=== PATIENT | female | born 1970 | race Two or more races ===

== ENCOUNTER 2019-04-15 11:13 | Emergency (ER) | payer MEDICAID ==
[~2019-04-15] VITALS: Ht 167.6 cm; Wt 86.2 kg
[2019-04-15 11:15] VITALS: BP 134/72
== END 2019-04-15 13:50 | disposition home or self-care (01) ==
LOC: ER 11:13
DX: R05 Cough (principal); J45.909 Unspecified asthma, uncomplicated
CPT/HCPCS: 71046

== ENCOUNTER 2019-07-11 11:53 | Emergency (ER) | payer MEDICAID, OTHER ==
[~2019-07-11] VITALS: Ht 167.6 cm; Wt 89.8 kg
[2019-07-11 12:06] VITALS: BP 131/81
--- NOTE | 2019-07-11 12:23 | NUR ---
Patient discharged to home in stable condition. Written and verbal after care instructions given. Patient verbalizes understanding of instruction. Pt ambulatory with a steady gait
== END 2019-07-11 12:27 | disposition home or self-care (01) ==
LOC: ER 11:53
DX: Z03.818 Encounter for observation for suspected exposure to other biological agents ruled out (principal)
CPT/HCPCS: 99283; U0003

== ENCOUNTER 2019-08-03 17:42 | Emergency (ER) | payer OTHER ==
[~2019-08-03] VITALS: Ht 167.6 cm; Wt 77.1 kg
[2019-08-03 17:56] VITALS: BP 135/81
== END 2019-08-03 18:35 | disposition home or self-care (01) ==
LOC: ER 17:45
DX: Z03.818 Encounter for observation for suspected exposure to other biological agents ruled out (principal); J45.909 Unspecified asthma, uncomplicated; K21.9 Gastro-esophageal reflux disease without esophagitis
CPT/HCPCS: 99283; C9803; U0003

== ENCOUNTER 2019-08-16 15:43 | Emergency (ER) | payer OTHER ==
[~2019-08-16] VITALS: Ht 167.6 cm; Wt 72.6 kg
[2019-08-16 15:51] VITALS: BP 135/62
== END 2019-08-16 16:22 | disposition home or self-care (01) ==
LOC: ER 15:45
DX: Z11.59 Encounter for screening for other viral diseases (principal); J45.909 Unspecified asthma, uncomplicated; K21.9 Gastro-esophageal reflux disease without esophagitis
CPT/HCPCS: 99283; C9803; U0003

== ENCOUNTER 2019-08-29 08:23 | Emergency (ER) | payer OTHER ==
[~2019-08-29] VITALS: Ht 167.6 cm; Wt 90.7 kg
[2019-08-29 08:27] VITALS: BP 135/88
--- NOTE | 2019-08-29 10:01 | NUR ---
Patient discharged to home in stable condition. Written and verbal after care instructions given. Patient verbalizes understanding of instruction.
== END 2019-08-29 10:00 | disposition home or self-care (01) ==
LOC: ER 08:24
DX: Z11.59 Encounter for screening for other viral diseases (principal); J45.909 Unspecified asthma, uncomplicated; K21.9 Gastro-esophageal reflux disease without esophagitis
CPT/HCPCS: 99283; C9803; U0003

== ENCOUNTER 2019-09-19 12:41 | Emergency (ER) | payer OTHER ==
[~2019-09-19] VITALS: Ht 167.6 cm; Wt 88.5 kg
[2019-09-19 12:52] VITALS: BP 135/66
--- NOTE | 2019-09-19 13:30 | NUR ---
SWAB DONE AND SENT TO LAB
--- NOTE | 2019-09-19 13:36 | NUR ---
Patient discharged to home in stable condition. Written and verbal after care instructions given. Patient verbalizes understanding of instruction.Pt ambulatory with a steady gait
== END 2019-09-19 13:37 | disposition home or self-care (01) ==
LOC: ER 12:47
DX: Z20.828 Contact with and (suspected) exposure to other viral communicable diseases (principal); J45.909 Unspecified asthma, uncomplicated; K21.9 Gastro-esophageal reflux disease without esophagitis
CPT/HCPCS: 99283; C9803; U0003

== ENCOUNTER 2019-10-08 13:31 | Emergency (ER) | payer OTHER ==
[~2019-10-08] VITALS: Ht 167.6 cm; Wt 102.1 kg
[2019-10-08 13:38] VITALS: BP 112/69
== END 2019-10-08 13:58 | disposition home or self-care (01) ==
LOC: ER 13:36
DX: Z20.828 Contact with and (suspected) exposure to other viral communicable diseases (principal); J45.909 Unspecified asthma, uncomplicated; K21.9 Gastro-esophageal reflux disease without esophagitis
CPT/HCPCS: 99283; C9803; U0003

== ENCOUNTER 2019-11-11 06:44 | Emergency (ER) | payer OTHER ==
[~2019-11-11] VITALS: Ht 167.6 cm; Wt 90.7 kg
[2019-11-11 06:45] VITALS: BP 132/64
--- NOTE | 2019-11-11 07:05 | NUR ---
COVID SWAB COLLECTED AND SENT TO LAB
== END 2019-11-11 07:06 | disposition home or self-care (01) ==
LOC: ER 06:44
DX: Z20.828 Contact with and (suspected) exposure to other viral communicable diseases (principal); J45.909 Unspecified asthma, uncomplicated; K21.9 Gastro-esophageal reflux disease without esophagitis
CPT/HCPCS: 99283; C9803; U0003

== ENCOUNTER 2019-11-15 13:38 | Emergency (ER) | payer OTHER ==
[~2019-11-15] VITALS: Ht 170.2 cm; Wt 79.4 kg
[2019-11-15 13:45] VITALS: BP 137/80
--- NOTE | 2019-11-15 14:01 | NUR ---
COVID SWAB COLLECTED AND SENT TO LAB
== END 2019-11-15 14:25 | disposition home or self-care (01) ==
LOC: ER 13:39
DX: Z20.828 Contact with and (suspected) exposure to other viral communicable diseases (principal); J45.909 Unspecified asthma, uncomplicated; K21.9 Gastro-esophageal reflux disease without esophagitis
CPT/HCPCS: 99283; C9803; U0003

== ENCOUNTER 2019-11-22 14:15 | Emergency (ER) | payer OTHER ==
[~2019-11-22] VITALS: Ht 170.2 cm; Wt 79.4 kg
[2019-11-22 14:39] VITALS: BP 132/86
== END 2019-11-22 15:10 | disposition home or self-care (01) ==
LOC: ER 14:18
DX: Z20.828 Contact with and (suspected) exposure to other viral communicable diseases (principal); J45.909 Unspecified asthma, uncomplicated; K21.9 Gastro-esophageal reflux disease without esophagitis
CPT/HCPCS: 99283; C9803; U0003

== ENCOUNTER 2019-11-29 15:43 | Emergency (ER) | payer OTHER ==
--- NOTE | 2019-11-29 16:18 | NUR ---
called not in ed waiting room.
--- NOTE | 2019-11-29 16:33 | NUR ---
patient left before being swabbed for covid19.
== END 2019-11-29 16:35 | disposition left against medical advice (07) ==
LOC: ER 15:46
DX: Z20.828 Contact with and (suspected) exposure to other viral communicable diseases (principal)

== ENCOUNTER 2019-11-30 08:28 | Emergency (ER) | payer OTHER ==
[~2019-11-30] VITALS: Ht 167.6 cm; Wt 79.4 kg
[2019-11-30 08:39] VITALS: BP 142/82
== END 2019-11-30 09:52 | disposition home or self-care (01) ==
LOC: ER 08:31
DX: Z20.828 Contact with and (suspected) exposure to other viral communicable diseases (principal); K21.9 Gastro-esophageal reflux disease without esophagitis; J45.909 Unspecified asthma, uncomplicated
CPT/HCPCS: 99283; C9803; U0003

== ENCOUNTER 2019-12-07 10:14 | Emergency (ER) | payer OTHER ==
[~2019-12-07] VITALS: Ht 167.6 cm; Wt 86.2 kg
[2019-12-07 10:30] VITALS: BP 134/85
== END 2019-12-07 12:29 | disposition home or self-care (01) ==
LOC: ER 10:16
DX: Z20.828 Contact with and (suspected) exposure to other viral communicable diseases (principal); J45.909 Unspecified asthma, uncomplicated; K21.9 Gastro-esophageal reflux disease without esophagitis
CPT/HCPCS: 99283; C9803; U0003

== ENCOUNTER 2019-12-20 13:38 | Emergency (ER) | payer OTHER ==
[~2019-12-20] VITALS: Ht 167.6 cm; Wt 86.2 kg
[2019-12-20 13:46] VITALS: BP 134/92
== END 2019-12-20 14:04 | disposition home or self-care (01) ==
LOC: ER 13:39
DX: Z20.828 Contact with and (suspected) exposure to other viral communicable diseases (principal); K21.9 Gastro-esophageal reflux disease without esophagitis; J45.909 Unspecified asthma, uncomplicated
CPT/HCPCS: 99283; C9803; U0003

== ENCOUNTER 2020-01-03 10:31 | Emergency (ER) | payer OTHER ==
[~2020-01-03] VITALS: Ht 167.6 cm; Wt 81.6 kg
[2020-01-03 10:34] VITALS: BP 145/82
== END 2020-01-03 11:04 | disposition home or self-care (01) ==
LOC: ER 10:36
DX: Z20.828 Contact with and (suspected) exposure to other viral communicable diseases (principal); K21.9 Gastro-esophageal reflux disease without esophagitis; J45.909 Unspecified asthma, uncomplicated; R03.0 Elevated blood-pressure reading, without diagnosis of hypertension
CPT/HCPCS: 99283; C9803; U0003

== ENCOUNTER 2020-01-10 12:43 | Emergency (ER) | payer OTHER ==
[~2020-01-10] VITALS: Ht 167.6 cm; Wt 81.6 kg
[2020-01-10 12:48] VITALS: BP 142/80
--- NOTE | 2020-01-10 13:24 | NUR ---
COVID TEST DONE & SENT TO LAB.
== END 2020-01-10 13:25 | disposition home or self-care (01) ==
LOC: ER 12:48
DX: Z20.828 Contact with and (suspected) exposure to other viral communicable diseases (principal); J45.909 Unspecified asthma, uncomplicated; K21.9 Gastro-esophageal reflux disease without esophagitis; R03.0 Elevated blood-pressure reading, without diagnosis of hypertension
CPT/HCPCS: 99283; C9803; U0003

== ENCOUNTER 2020-01-31 12:37 | Emergency (ER) | payer OTHER ==
[~2020-01-31] VITALS: Ht 167.6 cm; Wt 68.0 kg
[2020-01-31 12:48] VITALS: BP 131/85
== END 2020-01-31 13:24 | disposition home or self-care (01) ==
LOC: ER 12:39
DX: Z20.828 Contact with and (suspected) exposure to other viral communicable diseases (principal); J45.909 Unspecified asthma, uncomplicated; K21.9 Gastro-esophageal reflux disease without esophagitis
CPT/HCPCS: 99283; C9803; U0003

== ENCOUNTER 2020-02-04 15:54 | Emergency (ER) | payer OTHER ==
[~2020-02-04] VITALS: Ht 167.6 cm; Wt 90.7 kg
[2020-02-04 17:26] VITALS: BP 140/87
== END 2020-02-04 18:40 | disposition home or self-care (01) ==
LOC: ER 15:55
DX: R50.9 Fever, unspecified (principal); R05 Cough; Z20.828 Contact with and (suspected) exposure to other viral communicable diseases; R03.0 Elevated blood-pressure reading, without diagnosis of hypertension; J45.909 Unspecified asthma, uncomplicated; K21.9 Gastro-esophageal reflux disease without esophagitis
CPT/HCPCS: 87426; 99283; C9803; U0003

== ENCOUNTER 2020-02-15 10:57 | Emergency (ER) | payer OTHER ==
[~2020-02-15] VITALS: Ht 167.6 cm; Wt 87.1 kg
[2020-02-15 11:18] VITALS: BP 135/76
== END 2020-02-15 11:52 | disposition home or self-care (01) ==
LOC: ER 10:59
DX: Z20.822 Contact with and (suspected) exposure to COVID-19 (principal); J45.909 Unspecified asthma, uncomplicated; K21.9 Gastro-esophageal reflux disease without esophagitis
CPT/HCPCS: 99283; C9803; U0003

== ENCOUNTER 2020-02-28 11:13 | Emergency (ER) | payer OTHER ==
[~2020-02-28] VITALS: Ht 167.6 cm; Wt 86.2 kg
[2020-02-28 11:30] VITALS: BP 107/60
== END 2020-02-28 12:27 | disposition home or self-care (01) ==
LOC: ER 11:13
DX: Z20.822 Contact with and (suspected) exposure to COVID-19 (principal); J45.909 Unspecified asthma, uncomplicated; K21.9 Gastro-esophageal reflux disease without esophagitis
CPT/HCPCS: 99283; C9803; U0003

== ENCOUNTER 2020-04-19 14:30 | Emergency (ER) | payer OTHER ==
[~2020-04-19] VITALS: Ht 167.6 cm; Wt 81.6 kg
[2020-04-19 14:38] VITALS: BP 132/84
--- NOTE | 2020-04-19 15:36 | NUR ---
covid swab sent. Patient discharged to home in stable condition. Written and verbal after care instructions given. Patient verbalizes understanding of instruction.
== END 2020-04-19 15:36 | disposition home or self-care (01) ==
LOC: ER 14:31
DX: Z20.822 Contact with and (suspected) exposure to COVID-19 (principal); J45.909 Unspecified asthma, uncomplicated; K21.9 Gastro-esophageal reflux disease without esophagitis
CPT/HCPCS: 99283; C9803; U0003

== ENCOUNTER 2020-07-02 14:02 | Emergency (ER) | payer OTHER ==
[~2020-07-02] VITALS: Ht 167.6 cm; Wt 81.6 kg
[2020-07-02 14:16] VITALS: BP 118/71
--- NOTE | 2020-07-02 14:30 | NUR ---
covid swab collected and sent to lab
--- NOTE | 2020-07-02 14:44 | NUR ---
Patient discharged to home in stable condition. Written and verbal after care instructions given. Patient verbalizes understanding of instruction.
== END 2020-07-02 14:44 | disposition home or self-care (01) ==
LOC: ER 14:02
DX: Z20.822 Contact with and (suspected) exposure to COVID-19 (principal); J45.909 Unspecified asthma, uncomplicated; K21.9 Gastro-esophageal reflux disease without esophagitis
CPT/HCPCS: 99283; C9803; U0003

== ENCOUNTER 2020-08-14 07:07 | Emergency (ER) | payer OTHER ==
[~2020-08-14] VITALS: Ht 167.6 cm; Wt 81.6 kg
[2020-08-14 07:27] VITALS: BP 130/74
--- NOTE | 2020-08-14 07:46 | NUR ---
COVID SWAB SENT.
== END 2020-08-14 07:46 | disposition home or self-care (01) ==
LOC: ER 07:09
DX: Z20.822 Contact with and (suspected) exposure to COVID-19 (principal); J45.909 Unspecified asthma, uncomplicated; K21.9 Gastro-esophageal reflux disease without esophagitis
CPT/HCPCS: 99283; C9803; U0003